=== PATIENT | female | born 1970 | race African-American/Black ===

== ENCOUNTER 2016-02-26 01:45 | Emergency (ER) | payer MEDICAID ==
[~2016-02-26 01:45] MED LIST: DICL50TA PO; ROBA750T PO
[2016-02-26 01:46] VITALS: BP 197/94; PULSE 70; RESP 16; TEMP 98.4; O2SAT 96
[2016-02-26] MEDS ORDERED: IBUPROFEN 400 MG TAB PO ONE (03:45)
--- NOTE | 2016-02-26 03:47 | PD ---
HPI Chief Complaint: Musculoskeletal Complaint Time Seen by Provider: 03:38 Travel History International Travel<30 days: No Contact w/Intl Traveler<30days: No Traveled to known affect area: No History of Present Illness HPI 45-year-old female presents for evaluation of left knee pain and right hip pain. She reports that 1 week ago she was walking out of a store and she stepped into a hole and fell, hitting her left knee against the ground. She felt a "pop" in her left knee. Since then she has had generalized pain in her left knee and right hip. Pain is an aching pain that is worse with movement. She has been ambulatory. She sustained a small abrasion to the anterior left knee as well. She has been using Tylenol but pain persisted which prompted evaluation. She has made an appointment with a primary care physician through [facility] for March 10. She has no other complaints at this time. [facility] Past Medical History High Cholesterol: Yes Diminished Hearing: No Hypertension: Yes Immunizations Current: No ?: Not : 8 Para: 5 Miscarriage: 1 : 1 Ectopic : Yes Social History Alcohol Use: No Tobacco Use: Yes (1 pk for 3 days) Substance Use: No Allergies-Medications (Allergen,Severity, Reaction): Coded Allergies: No Known Allergies (Unverified , 02/26/16) Reported Meds & Prescriptions Reported Meds & Active Scripts Active Ibuprofen 800 Mg Tab 800 Mg PO Q6HR PRN 10 Days Robaxin (Methocarbamol) 750 Mg Tab 750 Mg PO TID PRN Diclofenac Potassium 50 Mg Tab 50 Mg PO TID PRN Review of Systems Except as stated in HPI: all other systems reviewed are Neg Physical Exam Narrative GENERAL: Well-developed well-nourished female in no acute distress SKIN: Warm and dry. There is a healed superficial linear abrasion to the anterior left knee. CARDIOVASCULAR: Regular rate and rhythm. No murmur appreciated. RESPIRATORY: No accessory muscle use. Clear to auscultation. Breath sounds equal bilaterally. MUSCULOSKELETAL: No obvious deformities. The patient maintains full range of motion of the lower extremities and she has normal gait. There is no obvious laxity in the anterior or posterior stress examination of the left knee. She has some pain with range of motion activities of the right hip and the left knee. Distal pulses are intact. NEUROLOGICAL: Awake and alert. No obvious cranial nerve deficits. Motor grossly within normal limits. Normal speech. Data Data Last Documented VS Vital Signs Date Time Temp Pulse Resp B/P Pulse Ox O2 Delivery O2 Flow Rate FiO2 02/26/16 03:34 20 02/26/16 01:46 98.4 70 197/94 96 Orders Hip, Uni(Ap&Lat) Wo Ap Pelvis (02/26/16 ) Knee, Complete (4vws) (02/26/16 ) Ibuprofen (Motrin) (02/26/16 03:45) Acetamin-Codeine 300-30 Mg (Tylenol-Code (02/26/16 05:00) MDM Medical Decision Making Medical Screen Exam Complete: Yes Emergency Medical Condition: Yes Medical Record Reviewed: Yes Interpretation(s) Left knee x-ray CONCLUSION: No evidence of recent bony injury.. Right hip x-ray CONCLUSION: Mild degenerative changes of the hip joint. Otherwise negative. Differential Diagnosis Ligamentous disruption, meniscal disruption, strain, fracture, contusion Narrative Course 45-year-old female presents 1 week after falling and injuring her left knee, right hip. On examination there is a healing wound on the anterior left knee. No obvious deformities. No obvious laxity on stress examination or joint effusion. X-ray imaging of the left knee and right hip reveal no acute bony abnormalities. The patient was given Motrin and Tylenol with Codeine here in the ED. The patient's imaging studies reveal no acute abnormalities. Plan is to discharge the patient crutches, left knee immobilizer, outpatient follow-up on March 10 as scheduled, possibly for MRI imaging of his left knee pain persists. She verbalizes understanding. Diagnosis Primary Impression: Internal derangement of left knee Additional Impression: Strain of right hip Qualified Code: S76.011A - Strain of right hip, initial encounter Additional Instructions: Medication as prescribed. Take with meals. Rest. Crutches and knee immobilizer as needed. Follow-up as scheduled with your primary care physician. Med/Other Pt SpecificInfo: Prescription(s) given, Orthopedic Instructions Scripts Ibuprofen 800 Mg [id number] Mg PO Q6HR PRN (PAIN) 10 Days Ref 0 Prov:Darlin Turner DO 02/26/16 Disposition: 01 DISCHARGE HOME Condition: Stable Félix Young Feb 26, 2016 03:47
[2016-02-26] MEDS ORDERED: IBUP800T23 PO (04:59)
[2016-02-26] MEDS ORDERED: ACETAMINOPHEN/CODEINE 300 MG/30 MG TAB PO ONE (05:00)
--- NOTE | 2016-02-26 05:05 | RADRPT ---
EXAM DATE/TIME: 02/26/2016 04:29 [facility] COMPARISON: No previous studies available for comparison. INDICATIONS : Pt fell. Swelling and pain to left knee and right hip. MEDICAL HISTORY : None. SURGICAL HISTORY : None. ENCOUNTER: Initial ACUITY: 2 days PAIN SCORE: 8/10 LOCATION: Left Knee FINDINGS: Four view examination of the left knee demonstrates no evidence of fracture or dislocation. Bony min eralization is normal. The articular surfaces are intact. The suprapatellar soft tissues have a nor mal configuration. CONCLUSION: No evidence of recent bony injury.. Larry Harris MD on February 26, 2016 at 5:03 Board Certified Radiologist. This report was verified electronically.
--- NOTE | 2016-02-26 05:06 | RADRPT ---
EXAM DATE/TIME: 02/26/2016 04:29 [facility] COMPARISON: No previous studies available for comparison. INDICATIONS : Pt fell. Swelling and pain to left knee and right hip. MEDICAL HISTORY : None. SURGICAL HISTORY : None. ENCOUNTER: Initial ACUITY: 2 days PAIN SCORE: 8/10 LOCATION: Right HIP FINDINGS: A two view examination of the right hip was performed. The primary and secondary trabecular pattern of the femoral neck is intact. The hip joint is of normal width without significant sclerosis or bon y hypertrophy. There is a mild collar of osteophytes at the junction of the femoral head and neck. Mild narrowing of the superior joint space width. The acetabulum is grossly intact. CONCLUSION: Mild degenerative changes of the hip joint. Otherwise negative. Larry Harris MD on February 26, 2016 at 5:04 Board Certified Radiologist. This report was verified electronically.
[2016-03-10] MEDS ORDERED: TOPI1TAB97 PO (10:56)
[2016-03-10] MEDS ORDERED: FLUO1TAB3 PO (10:56)
[2016-03-10] MEDS ORDERED: TRAZ100T4 PO (10:56)
[2016-07-27] MEDS ORDERED: FLUO20CA12 PO (09:23)
[2016-07-27] MEDS ORDERED: TRAZ50TA12 PO (09:23)
[2016-07-27] MEDS ORDERED: HYDR25TA5 PO (09:31)
[2016-07-27] MEDS ORDERED: CYCL1TAB29 PO (09:31)
== END 2016-02-26 06:19 | disposition home or self-care (01) ==
LOC: NEPB 01:45
DX: M23.92 Unspecified internal derangement of left knee (principal); S39.013A Strain of muscle, fascia and tendon of pelvis, initial encounter; S33.9XXA Sprain of unspecified parts of lumbar spine and pelvis, initial encounter; S33.5XXA Sprain of ligaments of lumbar spine, initial encounter; I10 Essential (primary) hypertension; W17.2XXA Fall into hole, initial encounter; Y93.01 Activity, walking, marching and hiking; Y92.512 Supermarket, store or market as the place of occurrence of the external cause; Z72.0 Tobacco use
CPT/HCPCS: 73502; 73564; 99283; E0113; L1830

== ENCOUNTER 2016-06-16 19:05 | Emergency (ER) | payer MEDICAID ==
[~2016-06-16] VITALS: Ht 165.1 cm; Wt 100.0 kg
[~2016-06-16 19:05] MED LIST changes: +FLUO1TAB3 PO; +IBUP800T23 PO; +TOPI1TAB97 PO; +TRAZ100T4 PO
[2016-06-16 19:08] VITALS: BP 181/93; PULSE 86; RESP 16; TEMP 98.7; O2SAT 97
--- NOTE | 2016-06-16 19:27 | PD ---
Physical Exam Date Seen by Provider: Jun 16, 2016 Time Seen by Provider: 19:17 Narrative 46 yo female here for right hip pain. Has had this for a couple of days comes about every month. patient was told by PCP to get blood work but never did because "i didnt make the time". Comes and goes. Pain is severe, /. No other complaints. Vitals sign stable. Patient awaiting bed placement. Data Data Last Documented VS Vital Signs Date Time Temp Pulse Resp B/P Pulse Ox O2 Delivery O2 Flow Rate FiO2 06/16/16 19:08 98.7 86 16 181/93 97 Room Air [facility] Medical Record Reviewed: Yes Supervised Visit with [facility]: No Logan Aldaan Jun 16, 2016 19:27
[2016-07-27] MEDS ORDERED: FLUO20CA12 PO (09:23)
[2016-07-27] MEDS ORDERED: TRAZ50TA12 PO (09:23)
[2016-07-27] MEDS ORDERED: CYCL1TAB29 PO (09:31)
[2016-07-27] MEDS ORDERED: HYDR25TA5 PO (09:31)
== END 2016-06-16 21:14 | disposition left against medical advice (07) ==
LOC: NED 19:05
DX: M25.551 Pain in right hip (principal)
CPT/HCPCS: 99281

== ENCOUNTER 2016-07-12 11:51 | Emergency (ER) | payer MEDICAID, OTHER ==
[~2016-07-12] VITALS: Ht 162.6 cm; Wt 91.0 kg
[2016-07-12 12:03] VITALS: BP 163/78; PULSE 82; RESP 17; TEMP 97.8; O2SAT 100
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
[2016-07-12] MEDS ORDERED: IBUP-232 PO (12:15)
[2016-07-12] MEDS ORDERED: BACL10TA PO (12:15)
[2016-07-12] MEDS ORDERED: KETOROLAC TROMETHAMINE 60 MG/2 ML (IM) VIAL IM ONE (12:30)
[2016-07-27] MEDS ORDERED: FLUO20CA12 PO (09:23)
[2016-07-27] MEDS ORDERED: TRAZ50TA12 PO (09:23)
[2016-07-27] MEDS ORDERED: CYCL1TAB29 PO (09:31)
[2016-07-27] MEDS ORDERED: HYDR25TA5 PO (09:31)
== END 2016-07-12 12:31 ==
LOC: NEPC 11:51
DX: M54.2 Cervicalgia (principal); I10 Essential (primary) hypertension; F17.210 Nicotine dependence, cigarettes, uncomplicated
CPT/HCPCS: 84703; 96372; 99284; J1885

== ENCOUNTER 2016-10-13 16:58 | Emergency (ER) | payer MEDICAID, OTHER ==
[~2016-10-13] VITALS: Ht 162.6 cm; Wt 80.0 kg
[~2016-10-13 16:58] MED LIST changes: +BACL10TA PO; +CYCL1TAB29 PO; -DICL50TA PO; -FLUO1TAB3 PO; +FLUO20CA12 PO; +HYDR25TA5 PO; +IBUP-232 PO; -IBUP800T23 PO; -ROBA750T PO; -TRAZ100T4 PO; +TRAZ50TA12 PO
[2016-10-13 17:22] VITALS: BP 138/84; PULSE 88; RESP 20; TEMP 98.8
[2016-10-13 19:47] LABS: AUTOMATED NEUTROPHIL # 10.8 TH/MM3 (1.8-7.7); BASOPHIL # 0.1 TH/MM3 (0-0.2); BASOPHIL % 0.9 % (0.0-2.0); EOSINOPHIL # 0.1 TH/MM3 (0-0.4); HEMATOCRIT 39.5 % (35.0-46.0); HEMO FLAGS DIFF FINAL; LYMPH % 13.6 % (9.0-44.0); LYMPHOCYTE # 1.9 TH/MM3 (1.0-4.8); MEAN CELL VOLUME 87.1 FL (80.0-100.0); MEAN CORPUSCULAR HEMOGLOBIN 28.6 PG (27.0-34.0); MEAN CORPUSCULAR HGB CONC 32.8 % (32.0-36.0); MONO % 7.7 % (0.0-8.0); NEUT % 76.8 % (16.0-70.0); PLATELET COUNT 388 TH/MM3 (150-450); RED BLOOD COUNT 4.54 MIL/MM3 (4.00-5.30); RED CELL DISTRIBUTION WIDTH 15.1 % (11.6-17.2)
--- NOTE | 2016-10-13 19:59 | PD ---
HPI Chief Complaint: Psychiatric Symptoms Time Seen by Provider: 18:58 Travel History International Travel<30 days: No Contact w/Intl Traveler<30days: No Traveled to known affect area: No History of Present Illness HPI 46-year-old female that presents to the ED for evaluation of psych. Patient was [place] acted by police after she told him that she was suicidal. She has a history of depression and bipolar disorder. Per patient she used to take medications for them but she's been out of them for 2 weeks. Per patient she feels hopeless and feels like she is hearing voices. She has a history of drug abuse including marijuana and alcohol. She has a history of chronic pain for which she takes Flexeril. She states that she used to take trazodone and Prozac. Denies any IV drug abuse. No other medical issues. Patient was [place] acted by police. She states that she is suicidal but she has no plan. No homicidal ideation. PFSH Past Medical History Anxiety: Yes Depression: Yes Cardiovascular Problems: Yes (PT STATES DOES NOT TAKE MED) High Cholesterol: Yes Diminished Hearing: No Hypertension: Yes Psychiatric: Yes Immunizations Current: No ?: Not : 8 Para: 5 Miscarriage: 1 : 1 Ectopic : Yes Social History Alcohol Use: No Tobacco Use: Yes (1 pk for 3 days) Substance Use: No Allergies-Medications (Allergen,Severity, Reaction): Coded Allergies: No Known Allergies (Unverified , 07/27/16) Reported Meds & Prescriptions Reported Meds & Active Scripts Active Bactrim DS (Sulfamethoxazole-Trimethoprim) 800-160 Mg Tab 1 Tab PO BID 7 Days Hydrochlorothiazide 25 Mg Tab 25 Mg PO DAILY Flexeril (Cyclobenzaprine HCl) 10 Mg Tab 10 Mg PO TID Ibuprofen 600 Mg Tab 600 Mg PO Q6H PRN 10 Days Baclofen 10 Mg Tab 10 Mg PO Q8HR PRN 5 Days Reported Trazodone (Trazodone HCl) 50 Mg Tab 100 Mg PO HS Fluoxetine (Fluoxetine HCl) 20 Mg Capsule 20 Mg PO DAILY Topiramate 25 Mg Tab 25 Mg PO DAILY Review of Systems Except as stated in HPI: all other systems reviewed are Neg Physical Exam Narrative GENERAL: SKIN: Warm and dry. HEAD: Atraumatic. Normocephalic. EYES: Pupils equal and round. No scleral icterus. No injection or drainage. ENT: No nasal bleeding or discharge. Mucous membranes pink and moist. Tongue is midline. No uvula deviation. NECK: Trachea midline. No JVD. CARDIOVASCULAR: Regular rate and rhythm. No murmurs, S3, S4. RESPIRATORY: No accessory muscle use. Clear to auscultation. Breath sounds equal bilaterally. GASTROINTESTINAL: Abdomen soft, non-tender, nondistended. Hepatic and splenic margins not palpable. MUSCULOSKELETAL: Extremities without clubbing, cyanosis, or edema. No obvious deformities. Full range of motion of the upper and lower extremities bilaterally. 2+ pulses bilaterally. NEUROLOGICAL: Awake and alert. No obvious cranial nerve deficits. Motor grossly within normal limits. Five out of 5 muscle strength in the arms and legs. Normal speech. PSYCHIATRIC: Depressed mood and affect; insight and judgment normal. Data Data Last Documented VS Vital Signs Date Time Temp Pulse Resp B/P (MAP) Pulse Ox O2 Delivery O2 Flow Rate FiO2 10/13/16 17:22 98.8 88 20 138/84 (102) Orders Orders Complete Blood Count With Diff (10/13/16 18:56) Comprehensive Metabolic Panel (10/13/16 18:56) Urinalysis - C+S If Indicated (10/13/16 18:56) Psych Screen (10/13/16 18:56) Drug Screen, Random Urine (10/13/16 18:56) Alcohol (Ethanol) (10/13/16 18:56) Salicylates (Aspirin) (10/13/16 18:56) Tylenol (Acetaminophen) (10/13/16 18:56) Sulfamet-Trimeth Ds 800-160 Mg (Bactrim (10/13/16 20:45) Labs Laboratory Tests Test 10/13/16 17:30 10/13/16 19:25 Urine Color YELLOW Urine Turbidity HAZY Urine pH 5.5 Urine Specific [place] 1.008 Urine Protein TRACE mg/dL Urine Glucose (UA) NEG mg/dL Urine Ketones NEG mg/dL Urine Occult Blood SMALL Urine Nitrite NEG Urine Bilirubin NEG Urine Urobilinogen LESS THAN 2.0 MG/DL Urine Leukocyte Esterase TRACE Urine RBC 4 /hpf Urine WBC 1 /hpf Urine Squamous Epithelial Cells 5 /hpf Urine Hyaline Casts 16 /lpf Urine Mucus FEW /lpf Microscopic Urinalysis Comment CULT NOT INDICATED Urine Opiates Screen NEG Urine Barbiturates Screen NEG Urine Amphetamines Screen NEG Urine Benzodiazepines Screen NEG Urine Cocaine Screen POS Urine Cannabinoids Screen POS White Blood Count 14.0 TH/MM3 Red Blood Count 4.54 MIL/MM3 Hemoglobin 13.0 GM/DL Hematocrit 39.5 % Mean Corpuscular Volume 87.1 FL Mean Corpuscular Hemoglobin 28.6 PG Mean Corpuscular Hemoglobin Concent 32.8 % Red Cell Distribution Width 15.1 % Platelet Count 388 TH/MM3 Mean Platelet Volume 7.4 FL Neutrophils (%) (Auto) 76.8 % Lymphocytes (%) (Auto) 13.6 % Monocytes (%) (Auto) 7.7 % Eosinophils (%) (Auto) 1.0 % Basophils (%) (Auto) 0.9 % Neutrophils # (Auto) 10.8 TH/MM3 Lymphocytes # (Auto) 1.9 TH/MM3 Monocytes # (Auto) 1.1 TH/MM3 Eosinophils # (Auto) 0.1 TH/MM3 Basophils # (Auto) 0.1 TH/MM3 CBC Comment DIFF FINAL Differential Comment Blood Urea Nitrogen 14 MG/DL Creatinine 1.11 MG/DL Random Glucose 106 MG/DL Total Protein 7.3 GM/DL Albumin 3.6 GM/DL Calcium Level 8.4 MG/DL Alkaline Phosphatase 74 U/L Aspartate Amino Transf (AST/SGOT) 19 U/L Alanine Aminotransferase (ALT/SGPT) 26 U/L Total Bilirubin 0.3 MG/DL Sodium Level 135 MEQ/L Potassium Level 3.5 MEQ/L Chloride Level 104 MEQ/L Carbon Dioxide Level 23.8 MEQ/L Anion Gap 7 MEQ/L Estimat Glomerular Filtration Rate 65 ML/MIN Salicylates Level 2.6 MG/DL Acetaminophen Level LESS THAN 2.0 MCG/ML Ethyl Alcohol Level LESS THAN 3 MG/DL MDM Medical Decision Making Medical Screen Exam Complete: Yes Emergency Medical Condition: Yes Medical Record Reviewed: Yes Interpretation(s) CBC & BMP Diagram 10/13/16 19:25 BMP Diagram 10/13/16 19:25 Total Protein 7.3, Albumin 3.6, Calcium Level 8.4 L, Alkaline Phosphatase 74, Aspartate Amino Transf (AST/SGOT) 19, Alanine Aminotransferase (ALT/SGPT) 26, Total Bilirubin 0.3 tox positive for cocaine and marijuana UA shows possible UTI Differential Diagnosis Depression versus suicidal ideation versus anxiety versus adjustment disorder versus mood disorder versus bipolar disorder versus schizophrenia versus paranoid disorder versus psychosis versus substance abuse versus alcohol abuse versus alcohol induced psychosis versus homicidality addition versus cutting versus personality disorder Narrative Course 46-year-old female that presents to the ED for evaluation of psych. Patient was properly examined and was found to have signs and symptoms consistent with psychiatric illness tenosynovitis medical distress. Labs were drawn. Patient will be medically clear. Okay to be seen by psych. Possible UTI. Will treat with bactrim and prescription. Mental health screening was discussed with the patient. Diagnosis Primary Impression: Mood disorder Additional Impressions: Suicidal ideations UTI (urinary tract infection) Qualified Codes: N30.00 - Acute cystitis without hematuria Scripts Sulfamethoxazole-Trimethoprim (Bactrim DS) 800-160 Mg Tab 1 TAB PO BID for Infection for 7 Days, TAB 0 Refills Prov: Zuleima Pal MD 10/13/16 Logan Aldana Oct 13, 2016 19:59
[2016-10-13 20:03] LABS: ANION GAP 7 MEQ/L (5-15)
[2016-10-13 20:09] LABS: ALKALINE PHOSPHATASE 74 U/L (45-117); ALT (GPT) 26 U/L (10-53); AST (GOT) 19 U/L (15-37); BICARBONATE 23.8 MEQ/L (21.0-32.0); BLOOD UREA NITROGEN 14 MG/DL (7-18); CHLORIDE 104 MEQ/L (98-107); GLOMERULAR FILTRATION RATE 65 ML/MIN (>89); POTASSIUM 3.5 MEQ/L (3.5-5.1); SODIUM (NA) 135 MEQ/L (136-145); TOTAL BILIRUBIN ADULT 0.3 MG/DL (0.2-1.0)
[2016-10-13 20:10] LABS: ACETAMINOPHEN LESS THAN 2.0 MCG/ML (10.0-30.0); ALCOHOL LESS THAN 3 MG/DL (0-5)
[2016-10-13 20:21] LABS: BLOOD, URINE SMALL (NEG); COMMENT (UR) CULT NOT INDICATED; CULTURE IF INDICATED CULT NOT INDICATED; GLUCOSE,URINE NEG (NEG); HYALINE CAST, URINE 16 /lpf (RARE); KETONE, URINE NEG (NEG); MUCUS URINE FEW /lpf (OCC); NITRITE,URINE NEG (NEG); PH, URINE 5.5 (5.0-8.5); SQUAMOUS EPITHELIAL CELL URINE 5 /hpf (0-5); URINE COLOR YELLOW (YELLW/STRAW)
[2016-10-13] MEDS ORDERED: BACT800T5 PO (20:33)
[2016-10-13] MEDS ORDERED: SULFAMETHOXAZOLE-TRIMETHOPRIM DS 800-160 MG TAB PO ONE (20:45)
[2016-10-13 23:17] VITALS: BP 167/83; PULSE 67; RESP 18
[2016-10-14 06:49] VITALS: BP 175/94; PULSE 58; RESP 18; O2SAT 96
[2016-10-14] MEDS ORDERED: IBUPROFEN 600 MG TAB PO ONE (09:00)
[2016-10-14] MEDS ORDERED: HYDROCHLOROTHIAZIDE 25 MG TAB PO ONE (09:00)
[2016-10-14] MEDS ORDERED: CYCLOBENZAPRINE HCL 10 MG TAB PO ONE (09:00)
[2016-10-14] MEDS ORDERED: SULFAMETHOXAZOLE-TRIMETHOPRIM DS 800-160 MG TAB PO ONE ×2 (09:00→20:30)
[2016-10-14 12:36] VITALS: BP 143/89; PULSE 63; RESP 16; TEMP 98.5; O2SAT 98
[2016-10-14 18:02] VITALS: BP 157/91; PULSE 75; RESP 18; O2SAT 100
[2016-10-14] MEDS ORDERED: diphenhydrAMINE HCL 50 MG CAP PO ONE (20:30)
[2016-10-14 22:47] VITALS: BP 190/110; PULSE 58; PULSE 85; RESP 18
[2016-10-14 22:52] VITALS: BP 194/109
[2016-10-14 22:53] VITALS: BP 200/93
[2016-10-14] MEDS ORDERED: amLODIPine BESYLATE 5 MG TAB PO ONE (23:00)
[2016-10-15 00:05] VITALS: BP 166/88; PULSE 60; RESP 18
[2016-10-15 02:55] VITALS: BP 181/87; PULSE 55; RESP 16
[2016-10-15 06:52] VITALS: BP 173/91; PULSE 63; RESP 18; O2SAT 96
[2016-10-15 09:50] VITALS: BP 167/86; PULSE 69; RESP 18; O2SAT 99
--- NOTE | 2016-10-15 13:46 | PD ---
History of Present Illness Chief Complaint: Psychiatric Symptoms Time Seen by Provider: 13:20 Travel History International Travel<30 Days: No Contact w/Intl Traveler<30days: No Known affected area: No Legal Status Legal Status: Delacruz Act Delacruz Act Signed By: Raymundo Hubbard Delacruz Act Comment: 10/13/2016 1646 pm History of Present Illness: History of Present Illness HPI 46-year-old female with reported history of bipolar depression that presents to the ED under a Delacruz act initiated by [facility] after she reported to them that she wanted to kill herself "anyway possible". As she reports that she had been fairly stable until 2 weeks ago when she abruptly stopped her medications. She states that her cousin accidently took her medication to [place] and has not mailed them back to her. She also reports feeling depressed because her boyfriend left her and she is unable to manage on her own financially and her lights were cut.She feels like her children are not supportive of her. Patient seen. EMR reviewed. No previous contact with [facility] [place]. Patient was monitored in J pod for extended time and she presented with no behavioral concerns and no suicidality. She is alert, oriented AA female who is maintaining basic hygiene. She is calm and engaging. tearful at times. There is no indication that she is experiencing any psychosis and no rachelle. She denies suicidal ideation, intent or plan. States I have children and grandchildren. I worry over my 19 year old so I wouldn't hurt myself" I just needed some time and my space". Since she is not able to get a early refill on her medication she is agreeable to a small prescription for Vistaril until she can slat pickler her medication. PFSH Past Medical History Anxiety: Yes Depression: Yes Cardiovascular Problems: Yes (PT STATES DOES NOT TAKE MED) High Cholesterol: Yes Diminished Hearing: No Hypertension: Yes Psychiatric: Yes Immunizations Current: No ?: Not : 8 Para: 5 Miscarriage: 1 : 1 Ectopic : Yes Psychiatric History Psychiatric History Hx Psychiatric Treatment: Patient with a history of bipolar disorder, depression and anxiety disorder. She states her last outpatient appointment at [facility] was in July 2016. History of Inpatient Treatment: No Guns or firearms in home: No Social History female. Lives with her 3 youngest children. On disability. Attended culinary school. Hx Alcohol Use: No Hx Tobacco Use: Yes (1 pk for 3 days) Hx Substance Use: Yes (cocaine, marijuana, 1pack/3d) Substance Use Type: Marijuana, Nicotine/Cigarettes, Cocaine Hx of Substance Use Treatment: No Allergies-Medications (Allergen,Severity, Reaction): Coded Allergies: No Known Allergies (Unverified , 07/27/16) Reported Meds & Prescriptions Reported Meds & Active Scripts Active Bactrim DS (Sulfamethoxazole-Trimethoprim) 800-160 Mg Tab 1 Tab PO BID 7 Days Hydrochlorothiazide 25 Mg Tab 25 Mg PO DAILY Flexeril (Cyclobenzaprine HCl) 10 Mg Tab 10 Mg PO TID Ibuprofen 600 Mg Tab 600 Mg PO Q6H PRN 10 Days Reported Trazodone (Trazodone HCl) 50 Mg Tab 100 Mg PO HS Fluoxetine (Fluoxetine HCl) 20 Mg Capsule 20 Mg PO DAILY Topiramate 25 Mg Tab 25 Mg PO DAILY Review of Systems Except as stated in HPI: all other systems reviewed are Neg Exam Alert: Yes [place]: Person (ox4) Mood: Depressed Affect: Tearful Speech: Clear, Logical Eye Contact: Normal Memory Intact: Comment (No impairment) Hallucinations: Other (Negative) Delusions: No Suicidal: Ideation (deneis any) Homicidal: Ideation (deneis any) Insight/Judgement Fair. Not impaired. MDM Medical Decision Making Medical Record Reviewed: Yes Assessment/Plan 46-year-old female with reported history of bipolar depression depression that presents to the ED under a BA for suicidal ideation. Has been monitored for extended period of time with no suicidality. Patient is denying suicidal ideation and feels more hopeful. 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 She is cognitively intact and contracts for safety. Does not meet BA criteria. Lift BA. Will provide her with area psychiatrist to follow up with outpatient care. Orders Orders Diet Regular Basic (10/14/16 Dinner) Sulfamet-Trimeth Ds 800-160 Mg (Bactrim (10/14/16 20:30) Diphenhydramine (Benadryl) (10/14/16 20:30) Amlodipine (Norvasc) (10/14/16 23:00) Diet Regular Basic (10/15/16 Breakfast) Diet Regular Basic (10/15/16 Lunch) Results Vital Signs Date Time Temp Pulse Resp B/P (MAP) Pulse Ox O2 Delivery O2 Flow Rate FiO2 10/15/16 09:50 69 18 167/86 (113) 99 Room Air 10/15/16 06:52 63 18 173/91 (118) 96 10/15/16 02:55 55 16 181/87 (118) 10/15/16 00:05 60 18 166/88 (114) 10/14/16 22:53 200/93 (128) 10/14/16 22:52 194/109 (137) 10/14/16 22:47 58 18 190/110 (136) 10/14/16 18:02 75 18 157/91 (113) 100 Room Air Diagnosis Primary Impression: Bipolar disorder Additional Impression: UTI (urinary tract infection) Ruled Out: Suicidal ideations Psychiatrically Cleared: Yes Prescriptions Hydroxyzine Pamoate (Vistaril) 50 Mg Cap 50 MG PO BID for Anxiety and/or Insomnia for 14 Days, CAP 0 Refills Prov: Shena Arora 10/15/16 Sulfamethoxazole-Trimethoprim (Bactrim DS) 800-160 Mg Tab 1 TAB PO BID for Infection for 7 Days, TAB 0 Refills Prov: Zuleima Pal MD 10/13/16 Disposition: 01 DISCHARGE HOME Condition: Stable Problem Qualifiers Primary Impression: Bipolar disorder Qualified Codes: F31.31 - Bipolar disorder, current episode depressed, mild Additional Impression: UTI (urinary tract infection) Qualified Codes: N30.00 - Acute cystitis without hematuria Shena Arora Oct 15, 2016 13:46
[2016-10-15] MEDS ORDERED: VIST50CA PO (13:48)
--- NOTE | 2016-10-15 13:58 | PD ---
Physical Exam Time Seen by Provider: 13:54 Narrative This is a 46-year-old female who was Delacruz acted for suicidal ideation and has been evaluated by psychiatry and cleared for discharge. Data Data Last Documented VS Vital Signs Date Time Temp Pulse Resp B/P (MAP) Pulse Ox O2 Delivery O2 Flow Rate FiO2 10/15/16 09:50 69 18 167/86 (113) 99 Room Air 10/14/16 12:36 98.5 Orders Orders Complete Blood Count With Diff (10/13/16 18:56) Comprehensive Metabolic Panel (10/13/16 18:56) Urinalysis - C+S If Indicated (10/13/16 18:56) Psych Screen (10/13/16 18:56) Drug Screen, Random Urine (10/13/16 18:56) Alcohol (Ethanol) (10/13/16 18:56) Salicylates (Aspirin) (10/13/16 18:56) Tylenol (Acetaminophen) (10/13/16 18:56) Sulfamet-Trimeth Ds 800-160 Mg (Bactrim (10/13/16 20:45) Diet Regular Basic (10/14/16 Breakfast) Sulfamet-Trimeth Ds 800-160 Mg (Bactrim (10/14/16 09:00) Ibuprofen (Motrin) (10/14/16 09:00) Cyclobenzaprine (Flexeril) (10/14/16 09:00) Hydrochlorothiazide (Hydrodiuril) (10/14/16 09:00) Diet Regular Basic (10/14/16 Lunch) Diet Regular Basic (10/14/16 Dinner) Sulfamet-Trimeth Ds 800-160 Mg (Bactrim (10/14/16 20:30) Diphenhydramine (Benadryl) (10/14/16 20:30) Amlodipine (Norvasc) (10/14/16 23:00) Diet Regular Basic (10/15/16 Breakfast) Diet Regular Basic (10/15/16 Lunch) Labs Laboratory Tests Test 10/13/16 17:30 10/13/16 19:25 Urine Color YELLOW Urine Turbidity HAZY Urine pH 5.5 Urine Specific [place] 1.008 Urine Protein TRACE mg/dL Urine Glucose (UA) NEG mg/dL Urine Ketones NEG mg/dL Urine Occult Blood SMALL Urine Nitrite NEG Urine Bilirubin NEG Urine Urobilinogen LESS THAN 2.0 MG/DL Urine Leukocyte Esterase TRACE Urine RBC 4 /hpf Urine WBC 1 /hpf Urine Squamous Epithelial Cells 5 /hpf Urine Hyaline Casts 16 /lpf Urine Mucus FEW /lpf Microscopic Urinalysis Comment CULT NOT INDICATED Urine Opiates Screen NEG Urine Barbiturates Screen NEG Urine Amphetamines Screen NEG Urine Benzodiazepines Screen NEG Urine Cocaine Screen POS Urine Cannabinoids Screen POS White Blood Count 14.0 TH/MM3 Red Blood Count 4.54 MIL/MM3 Hemoglobin 13.0 GM/DL Hematocrit 39.5 % Mean Corpuscular Volume 87.1 FL Mean Corpuscular Hemoglobin 28.6 PG Mean Corpuscular Hemoglobin Concent 32.8 % Red Cell Distribution Width 15.1 % Platelet Count 388 TH/MM3 Mean Platelet Volume 7.4 FL Neutrophils (%) (Auto) 76.8 % Lymphocytes (%) (Auto) 13.6 % Monocytes (%) (Auto) 7.7 % Eosinophils (%) (Auto) 1.0 % Basophils (%) (Auto) 0.9 % Neutrophils # (Auto) 10.8 TH/MM3 Lymphocytes # (Auto) 1.9 TH/MM3 Monocytes # (Auto) 1.1 TH/MM3 Eosinophils # (Auto) 0.1 TH/MM3 Basophils # (Auto) 0.1 TH/MM3 CBC Comment DIFF FINAL Differential Comment Blood Urea Nitrogen 14 MG/DL Creatinine 1.11 MG/DL Random Glucose 106 MG/DL Total Protein 7.3 GM/DL Albumin 3.6 GM/DL Calcium Level 8.4 MG/DL Alkaline Phosphatase 74 U/L Aspartate Amino Transf (AST/SGOT) 19 U/L Alanine Aminotransferase (ALT/SGPT) 26 U/L Total Bilirubin 0.3 MG/DL Sodium Level 135 MEQ/L Potassium Level 3.5 MEQ/L Chloride Level 104 MEQ/L Carbon Dioxide Level 23.8 MEQ/L Anion Gap 7 MEQ/L Estimat Glomerular Filtration Rate 65 ML/MIN Salicylates Level 2.6 MG/DL Acetaminophen Level LESS THAN 2.0 MCG/ML Ethyl Alcohol Level LESS THAN 3 MG/DL [facility] Medical Record Reviewed: Yes Supervised Visit with [facility]: No Narrative Course This is a 46-year-old female who was Delacruz acted for suicidal ideation and has been evaluated by psychiatry and cleared for discharge. I spoke with LOENIE Penn and the patient has been evaluated by the ANIMAL BREEDER who was lifted Delacruz act and cleared the patient for discharge. The patient will be prescribed Vistaril for home. She will speak prescription Bactrim for urinary tract infection. She has a plan to follow up with [facility] and has been provided a resource packet for community resources. She does see a psychiatrist but does not want to see the psychiatrist anymore. She has family and friends to support her. She currently denies suicidal or homicidal ideations. Diagnosis Primary Impression: Mood disorder Additional Impression: UTI (urinary tract infection) Qualified Codes: N30.00 - Acute cystitis without hematuria Ruled Out: Suicidal ideations Referrals: Primary Care Physician Psychiatrist [facility] Patient Instructions: General Instructions, Mood Disorders (ED), Urinary Tract Infection in Women (ED) Additional Instruction: Follow-up with psychiatry Follow-up with [facility] Follow-up with primary care provider Return to the emergency department immediately with worsening of symptoms Med/Other Pt SpecificInfo: Prescription(s) given Scripts Hydroxyzine Pamoate (Vistaril) 50 Mg Cap 50 MG PO BID for Anxiety and/or Insomnia for 14 Days, CAP 0 Refills Prov: Shena Arora 10/15/16 Sulfamethoxazole-Trimethoprim (Bactrim DS) 800-160 Mg Tab 1 TAB PO BID for Infection for 7 Days, TAB 0 Refills Prov: Zuleima Pal MD 10/13/16 Disposition: 01 DISCHARGE HOME Condition: Stable Miryam Pearce [facility] Oct 15, 2016 13:58
[2016-10-15 14:38] VITALS: BP 167/86; PULSE 69; RESP 18; O2SAT 99
== END 2016-10-15 17:02 | disposition home or self-care (01) ==
LOC: NEDAMB 16:58 → NEPJ 10-15 17:02
DX: F39 Unspecified mood [affective] disorder (principal); N39.0 Urinary tract infection, site not specified; F31.9 Bipolar disorder, unspecified; F41.9 Anxiety disorder, unspecified; I10 Essential (primary) hypertension; F17.200 Nicotine dependence, unspecified, uncomplicated; Z79.899 Other long term (current) drug therapy
CPT/HCPCS: 80053; 80307; 81001; 85025; 99284; Q0163

== ENCOUNTER 2016-11-08 08:37 | Emergency (ER) | payer MEDICAID ==
[~2016-11-08] VITALS: Ht 165.1 cm; Wt 86.3 kg
[~2016-11-08 08:37] MED LIST changes: -BACL10TA PO; +BACT800T5 PO; +VIST50CA PO
[2016-11-08 08:38] VITALS: BP 152/82; PULSE 112; RESP 20; TEMP 100.8; O2SAT 97
--- NOTE | 2016-11-08 09:06 | PD ---
HPI Chief Complaint: Cold / Flu Symptoms Time Seen by Provider: 08:54 Travel History International Travel<30 days: No Contact w/Intl Traveler<30days: No Traveled to known affect area: No History of Present Illness HPI This is a 46 year old female who presents to the emergency department with 4 days of sore throat, constant, moderate severity mostly on the left side associated with pain in her jaw all the way up to her ear. She is having pain swallowing and this kept her awake all night. She has no known sick contacts. She thinks she has an infection and needs an antibiotic. PFSH Past Medical History Anxiety: Yes Depression: Yes Cardiovascular Problems: Yes (PT STATES DOES NOT TAKE MED) High Cholesterol: Yes Diminished Hearing: No Hypertension: Yes Psychiatric: Yes Immunizations Current: No : 8 Para: 5 Miscarriage: 1 : 1 Ectopic : Yes Social History Alcohol Use: No Tobacco Use: Yes (1 pk for 3 days) Substance Use: Yes (cocaine, marijuana, 1pack/3d) Allergies-Medications (Allergen,Severity, Reaction): Coded Allergies: No Known Allergies (Unverified , 11/08/16) Reported Meds & Prescriptions Reported Meds & Active Scripts Active Vistaril (Hydroxyzine Pamoate) 50 Mg Cap 50 Mg PO BID 14 Days Hydrochlorothiazide 25 Mg Tab 25 Mg PO DAILY Flexeril (Cyclobenzaprine HCl) 10 Mg Tab 10 Mg PO TID Ibuprofen 600 Mg Tab 600 Mg PO Q6H PRN 10 Days Reported Trazodone (Trazodone HCl) 50 Mg Tab 100 Mg PO HS Fluoxetine (Fluoxetine HCl) 20 Mg Capsule 20 Mg PO DAILY Topiramate 25 Mg Tab 25 Mg PO DAILY Review of Systems Except as stated in HPI: all other systems reviewed are Neg Physical Exam Narrative GENERAL:Well appearing, no acute distress SKIN: Focused skin assessment warm and dry. HEAD: Atraumatic. Normocephalic. EYES: Pupils equal and round. No injection or drainage. ENT: Moist mucous membranes. Left posterior pharyngeal erythema with no tonsillar exudate. No uvular deviation or asymmetry in the posterior pharynx. Patient is speaking normally with a normal voice. Left tympanic membrane is transparent with some fluid behind it. NECK: Trachea midline. CARDIOVASCULAR: Regular rate and rhythm. No murmur appreciated. RESPIRATORY: Clear to auscultation. Breath sounds equal bilaterally. GASTROINTESTINAL: Abdomen soft, non-tender, nondistended. MUSCULOSKELETAL: No obvious deformities. NEUROLOGICAL: Awake and alert. No obvious cranial nerve deficits. Moving all extremities. PSYCHIATRIC: Appropriate mood and affect; insight and judgment normal. Data Data Last Documented VS Vital Signs Date Time Temp Pulse Resp B/P (MAP) Pulse Ox O2 Delivery O2 Flow Rate FiO2 11/08/16 08:38 100.8 112 20 152/82 (105) 97 Room Air Orders Orders Group A Rapid Strep Screen (11/08/16 09:00) Ketorolac Inj (Toradol Inj) (11/08/16 09:15) Strep Culture (Group A) (11/08/16 09:04) MDM Medical Decision Making Medical Screen Exam Complete: Yes Emergency Medical Condition: Yes Interpretation(s) Fever, tachycardia, hypertensive Strep negative Differential Diagnosis Viral pharyngitis, strep pharyngitis, peritonsillar abscess, mononucleosis Narrative Course This is a 46-year-old female who presents to the emergency department with sore throat, fevers and chills and left ear pain. She has no evidence of otitis media on exam. She does have erythema of the posterior pharynx with no signs of peritonsillar abscess. Rapid strep was obtained which was negative. I think patient has viral pharyngitis. She'll be discharged home with symptomatic control. Patient was somewhat antagonistic with me throughout the entire exam, telling me it was hurting her when I examined her ears in her neck. She seemed displeased that I was not going to prescribe her antibiotics. At this time I don't see an indication. Diagnosis Primary Impression: Viral pharyngitis Patient Instructions: General Instructions Additional Instructions: If you develop inability to swallow, inability to eat or drink or your pain is worsening return to the emergency room. Med/Other Pt SpecificInfo: Prescription(s) given Scripts Naproxen (Naproxen) 500 Mg Tab 500 MG PO BID, #20 TAB 0 Refills Prov: Vy King MD 11/08/16 Phenol (Antiseptic) (Chloraseptic) 1.4 % Spr 1-2 SPR PO Q2HR Y for SORE THROAT, #1 BOTTLE Prov: Vy King MD 11/08/16 Disposition: 01 DISCHARGE HOME Condition: Stable Vy King MD Nov 08, 2016 09:06
[2016-11-08] MEDS ORDERED: KETOROLAC TROMETHAMINE 60 MG/2 ML (IM) VIAL IM ONE (09:15)
[2016-11-08] MEDS ORDERED: CHLO1.4S2 PO (09:48)
[2016-11-08] MEDS ORDERED: NAPR500T PO (09:48)
[2016-11-08 10:31] LABS: BLOOD, URINE MOD (NEG); GLUCOSE,URINE NEG (NEG); KETONE, URINE NEG (NEG); MUCUS URINE FEW /lpf (OCC); NITRITE,URINE NEG (NEG); PH, URINE 6.5 (5.0-8.5); SQUAMOUS EPITHELIAL CELL URINE 4 /hpf (0-5); URINE COLOR YELLOW (YELLW/STRAW)
[2016-11-08 10:32] LABS: COMMENT (UR) CULT NOT INDICATED; CULTURE IF INDICATED CULT NOT INDICATED
== END 2016-11-08 11:12 | disposition home or self-care (01) ==
LOC: NEPD 08:37
DX: J02.0 Streptococcal pharyngitis (principal); B95.0 Streptococcus, group A, as the cause of diseases classified elsewhere; F17.200 Nicotine dependence, unspecified, uncomplicated
CPT/HCPCS: 81001; 87081; 87880; 96372; 99284; J1885

== ENCOUNTER 2017-02-25 07:12 | Emergency (ER) | payer MEDICAID ==
[~2017-02-25] VITALS: Ht 162.6 cm; Wt 90.5 kg
[~2017-02-25 07:12] MED LIST changes: -BACT800T5 PO; +CHLO1.4S2 PO; +CYCL10TA PO; -CYCL1TAB29 PO; +NAPR500T2 PO; -TOPI1TAB97 PO; +TOPI25TA7 PO
[2017-02-25 07:13] VITALS: BP 254/119; PULSE 78; RESP 16; TEMP 97.3; O2SAT 99
[2017-02-25 07:37] VITALS: BP 155/86; PULSE 70; RESP 16; O2SAT 98
[2017-02-25] MEDS ORDERED: ORPHENADRINE INJ 60 MG/2 ML AMP IM ONE (07:45)
[2017-02-25] MEDS ORDERED: KETOROLAC TROMETHAMINE 60 MG/2 ML (IM) VIAL IM ONE (07:45)
--- NOTE | 2017-02-25 07:47 | PD ---
HPI Chief Complaint: Back/ Neck Pain or Injury Time Seen by Provider: 07:30 Travel History International Travel<30 days: No Contact w/Intl Traveler<30days: No Traveled to known affect area: No History of Present Illness HPI 46-year-old female presents to the emergency Department with complaint of low back pain since yesterday. Has history of chronic low back pain with herniated disks. Denies injury, strain, fall. Denies encopresis, incontinence, saddle anesthesias. Denies IV drug use, cancer. Denies fevers, abdominal pain, vomiting. Denies paresthesias, loss of sensation, decreased range mush, decreased strength bilateral lower extremities. Says it feels like her pain is in her kidneys. Denies dysuria, urinary frequency. Rates pain 10/10. Worse with movement. Better at rest. Has taken ibuprofen for symptom management. PFSH Past Medical History Bipolar Disorder: Yes Anxiety: Yes Depression: Yes Cardiovascular Problems: Yes (PT STATES DOES NOT TAKE MED) High Cholesterol: Yes Diminished Hearing: No Hypertension: Yes Psychiatric: Yes Immunizations Current: No Tetanus Vaccination: > 5 Years Influenza Vaccination: No ?: Not LMP: JAN 2017 : 8 Para: 5 Miscarriage: 1 : 1 Ectopic : Yes Tubal Ligation: Yes Social History Alcohol Use: Yes (once a week ) Tobacco Use: Yes (1 pk for 3 days) Substance Use: No Allergies-Medications (Allergen,Severity, Reaction): Coded Allergies: No Known Allergies (Unverified , 11/08/16) Reported Meds & Prescriptions Reported Meds & Active Scripts Active Robaxin (Methocarbamol) 500 Mg Tab 500 Mg PO QID PRN Ibuprofen 800 Mg Tab 800 Mg PO Q6HR PRN Naproxen 500 Mg Tab 500 Mg PO BID Chloraseptic (Phenol (Antiseptic)) 1.4 % Spr 1-2 Spr PO Q2HR PRN Vistaril (Hydroxyzine Pamoate) 50 Mg Cap 50 Mg PO BID 14 Days Hydrochlorothiazide 25 Mg Tab 25 Mg PO DAILY Flexeril (Cyclobenzaprine HCl) 10 Mg Tab 10 Mg PO TID Ibuprofen 600 Mg Tab 600 Mg PO Q6H PRN 10 Days Reported Trazodone (Trazodone HCl) 50 Mg Tab 100 Mg PO HS Fluoxetine (Fluoxetine HCl) 20 Mg Capsule 20 Mg PO DAILY Topiramate 25 Mg Tab 25 Mg PO DAILY Physical Exam Narrative Patient refused physical exam until she was given pain medications. Injections of Toradol and Norflex were administered. 0822: Patient states the medications did nothing for her. She was being uncooperative for physical exam. It was hard to determine where her low back pain was. She is not being specific and just keeps stating "what are you going to do for me after this, nothing?" She keeps stating that she needs something stronger for pain and huffing and puffing. GENERAL: Well-nourished, well-developed black female patient, in no acute distress; afebrile, nontoxic-appearing SKIN: Warm and dry. HEAD: Atraumatic. Normocephalic. EYES: Pupils equal and round. No scleral icterus. No injection or drainage. ENT: Mucosa pink and moist. Airway patent. NECK: Trachea midline. CARDIOVASCULAR: Regular rate and rhythm. No murmur appreciated. RESPIRATORY: No accessory muscle use. Breath sounds clear and equal bilaterally. No retractions or tachypnea. GASTROINTESTINAL: Abdomen soft, non-tender, nondistended. Positive bowel sounds. No hepato-splenomegaly, or palpable masses. No guarding. MUSCULOSKELETAL: Bilateral lower extremities supple and non-tense with 2+ pedal pulses and sensory intact; with full range of motion and 5/5 strength. 2 + DTRs bilaterally. Active dorsiflexion and extension of bilateral feet. Bilateral straight leg raise is negative for low back pain. Sitting up in bed at 90. No obvious deformities. No clubbing. No cyanosis. No edema. BACK: Midline point tenderness on palpation of the lumbar spine. Tenderness on palpation of bilateral lumbar paraspinal and iliosacral area. No obvious deformities. NEUROLOGICAL: Awake and alert. Oriented 3. No obvious cranial nerve deficits. Motor grossly within normal limits. Normal speech. Moves all extremities. 5/5 strength to all extremities. Sensory intact. PSYCHIATRIC: Appropriate mood and affect; insight and judgment normal. Data Data Last Documented VS Vital Signs Date Time Temp Pulse Resp B/P (MAP) Pulse Ox O2 Delivery O2 Flow Rate FiO2 02/25/17 08:52 18 02/25/17 07:37 70 155/86 (109) 98 Room Air 02/25/17 07:13 97.3 Orders Orders Ketorolac Inj (Toradol Inj) (02/25/17 07:45) Orphenadrine Inj (Norflex Inj) (02/25/17 07:45) Urinalysis - C+S If Indicated (02/25/17 07:43) Spine, Lumbar - Ltd (Ap & Lat) (02/25/17 08:20) Ed Discharge Order (02/25/17 09:59) Labs Laboratory Tests Test 02/25/17 08:08 Urine Color YELLOW Urine Turbidity HAZY Urine pH 6.0 Urine Specific [place] 1.019 Urine Protein TRACE mg/dL Urine Glucose (UA) NEG mg/dL Urine Ketones NEG mg/dL Urine Occult Blood SMALL Urine Nitrite NEG Urine Bilirubin NEG Urine Urobilinogen LESS THAN 2.0 MG/DL Urine Leukocyte Esterase NEG Urine RBC 2 /hpf Urine WBC LESS THAN 1 /hpf Urine Squamous Epithelial Cells 7 /hpf Urine Mucus FEW /lpf Microscopic Urinalysis Comment CULT NOT INDICATED MDM Medical Decision Making Medical Screen Exam Complete: Yes Emergency Medical Condition: Yes Medical Record Reviewed: Yes Differential Diagnosis Acute exacerbation of chronic low back pain, UTI, pyelonephritis, sciatica Narrative Course 46-year-old female with acute exacerbation of chronic low back pain and history of herniated disks. Denies new or recent injury. Denies encopresis, incontinence, saddle anesthesias. Denies IV drug use or cancer. Denies fevers , vomiting. Patient is afebrile and nontoxic-appearing. Patient is refusing physical exam until she is given pain medications. Injections of Toradol and Norflex were ordered and administered. Urinalysis ordered. 0822: Patient states the medications did nothing for her. She was being uncooperative for physical exam at this time. It was hard to determine where her low back pain was. She kept stating it is "all across" her lower back. She is not being specific and just keeps stating "what are you going to do for me after this, nothing?" She keeps stating she needs something stronger for pain and huffing and puffing. I will order a lumbar spine x-ray secondary to not being able to determine specifics of her low back pain. 0832: Urinalysis without signs of infection. 0959: Lumbar spine x-ray concludes: Lumbar Spine X-Ray 02/25/17 0820 Signed Impressions: Service Date/Time: Saturday, February 25, 2017 08:30 - CONCLUSION: 1. No acute compression fracture, spondylolisthesis or spondylolysis. 2. Mild degenerative changes involving the lumbar spine and bilateral hips. 3. Mild scoliosis of lumbar spine. Ryder Pisano MD X-ray findings were discussed with the patient. Robaxin and ibuprofen prescribed for home. Patient provided information on his health clinic for follow-up. Instructed patient to follow up with primary care provider. Patient verbalizes understanding and agreement with treatment plan. Patient is medically cleared and stable for discharge. Discussed reasons to return to the emergency department. Patient agrees with treatment plan. The patients vital signs are stable and the patient is stable for outpatient follow-up and treatment. Patient discharged home, stable and in no acute distress. Diagnosis Primary Impression: Low back pain Qualified Codes: M54.5 - Low back pain; G89.29 - Other chronic pain Referrals: Primary Care Physician Patient Instructions: Acute Low Back Pain (ED), Decision Aid for Herniated Disc in the Lower Back (GEN), General Instructions, Lower Back Exercises (ED) Additional Instructions: Tylenol or ibuprofen as directed and as needed for pain Robaxin as prescribed and as needed for muscle spasms Heating pad and/or ice to affected area to reduce pain Avoid aggravating activities; increase activity as tolerated Follow-up with primary care provider Return to emergency department immediately with worsening of symptoms Med/Other Pt SpecificInfo: Prescription(s) given Scripts Methocarbamol (Robaxin) 500 Mg Tab 500 MG PO QID Y for MUSCLE SPASM, #30 TAB 0 Refills Prov: Miryam Pearce 02/25/17 Ibuprofen (Ibuprofen) 800 Mg Tab 800 MG PO Q6HR Y for PAIN, #30 TAB 0 Refills Prov: Miryam Pearce 02/25/17 Disposition: 01 DISCHARGE HOME Condition: Stable Miryam Pearce Feb 25, 2017 07:47
[2017-02-25 08:24] LABS: BILIRUBIN, URINE NEG (NEG); BLOOD, URINE SMALL (NEG); GLUCOSE,URINE NEG (NEG); KETONE, URINE NEG (NEG); MUCUS URINE FEW /lpf (OCC); NITRITE,URINE NEG (NEG); SQUAMOUS EPITHELIAL CELL URINE 7 /hpf (0-5); URINE COLOR YELLOW (YELLW/STRAW); URINE LEUKOCYTE ESTERASE NEG (NEG)
[2017-02-25] MEDS ORDERED: IBUP1TAB7 PO (08:29)
[2017-02-25] MEDS ORDERED: ROBA500T PO (08:29)
--- NOTE | 2017-02-25 08:50 | RADRPT ---
EXAM DATE/TIME: 02/25/2017 08:30 [place] COMPARISON: No previous studies available for comparison. INDICATIONS : Low back pain, denies injury MEDICAL HISTORY : None. SURGICAL HISTORY : None. ENCOUNTER: Initial ACUITY: 2 days PAIN SCORE: 10/10 LOCATION: Lumbar spine FINDINGS: Mild degenerative changes are noted throughout the lumbar spine. There is no acute compression fractu re, spondylolisthesis or spondylolysis. Mild scoliosis is noted. Mild degenerative changes are noted involving hip joints bilaterally. CONCLUSION: 1. No acute compression fracture, spondylolisthesis or spondylolysis. 2. Mild degenerative changes involving the lumbar spine and bilateral hips. 3. Mild scoliosis of lumbar spine. Ryder Pisano MD on February 25, 2017 at 8:45 Board Certified Radiologist. This report was verified electronically.
[2017-02-25 08:52] VITALS: RESP 18
== END 2017-02-25 10:14 | disposition home or self-care (01) ==
LOC: NEPD 07:12
DX: M51.36 Other intervertebral disc degeneration, lumbar region (principal); M16.0 Bilateral primary osteoarthritis of hip; M41.9 Scoliosis, unspecified; F31.9 Bipolar disorder, unspecified; F41.9 Anxiety disorder, unspecified; E78.00 Pure hypercholesterolemia, unspecified; I10 Essential (primary) hypertension; F17.200 Nicotine dependence, unspecified, uncomplicated; Z79.899 Other long term (current) drug therapy
CPT/HCPCS: 72100; 81001; 96372; 99284; J1885; J2360